=== PATIENT | female | born 1945 | race Caucasian/White ===

== ENCOUNTER → 2020-12-13 12:37 | Outpatient (CLI) | payer OTHER, SELFPAY ==
--- NOTE | ~2020-12-13 | CT_ITS ---
EXAMINATION: CT sinus wo con DATE: 12/13/2020 13:04 INDICATION: History of sinus infection TECHNIQUE: Computed tomography (CT) of the paranasal sinuses was performed without intravenous contra st. The dose-length product was 277.35 mGy-cm. Automated exposure control and iterative reconstructio n technique were employed. COMPARISON: None FINDINGS: There is mucosal thickening of the left maxillary sinus. No air-fluid levels. No significan t mucoperiosteal reaction. Mastoids are pneumatized. There is rightward nasal septal deviation. Right ostiomeatal unit is patent. Left ostiomeatal unit is occluded by soft tissue. There is intracranial atherosclerosis. IMPRESSION: 1. Mild sinus disease. Reviewed, dictated and finalized at location B. IMPRESSION: 1. Mild sinus disease.
== END ==
PROVIDERS: PCP Internal Medicine
DX: J01.90 Acute sinusitis, unspecified (principal)
CPT/HCPCS: 70486

== ENCOUNTER → 2021-11-22 10:17 | Outpatient (CLI) | payer OTHER, SELFPAY ==
--- NOTE | ~2021-11-22 | DEXA_ITS ---
Bone Density Report Name: TAWNYA LIU Age: 75 Sex: Female Ethnicity: White Date of : 1945 Indication: postmenopausal; screening for osteoporosis; height loss; Referring Provider: Igor, Monica Bhagat Study: Bone densitometry was performed. Exam Date: November 22, 2021 Accession number: [id number] Bone Density: Region BMD T-score Z-score Classification AP Spine (L1-L4) 0.931 -1.1 1.3 Osteopenia Femoral Neck (Left) 0.779 -0.6 1.4 Normal Total Hip (Left) 0.903 -0.3 1.5 Normal Femoral Neck (Right) 0.762 -0.8 1.3 Normal Total Hip (Right) 0.898 -0.4 1.4 Normal Total Hip Mean 0.901 -0.4 1.5 Normal World Health Organization criteria for BMD impression classify patients as: Normal (T-score at or above -1.0), Osteopenia (T-score between -1.0 and -2.5), or Osteoporosis (T-score at or below -2.5). 10-year Fracture Risk(1): Major Osteoporotic Fracture 9.1% Hip Fracture 1.2% Reported Risk Factors: [place] (), Neck BMD=0.762, BMI=28.1 (1) FRAX(R) Version 3.08. Fracture probability calculated for an untreated patient. Fracture probability may be lower if the patient has received treatment. Previous Exams: Region Exam Age BMD T-score BMD Change BMD Change Date g/cm2 vs Baseline vs Previous AP Spine(L1-L4) 11/22/2021 75 0.931 -1.1 -0.006 -0.032* 06/14/2016 70 0.963 -0.8 0.026* -0.024* 07/01/2013 67 0.987 -0.5 0.050* 0.050* 03/14/2007 61 0.937 -1.0 Total Hip(Left) 11/22/2021 75 0.903 -0.3 -0.044* -0.016 06/14/2016 70 0.919 -0.2 -0.028* -0.069* 07/01/2013 67 0.989 0.4 0.042* 0.042* 03/14/2007 61 0.947 0.0 Total Hip(Right) 11/22/2021 75 0.898 -0.4 -0.043* -0.027* 06/14/2016 70 0.925 -0.1 -0.016 -0.086* 07/01/2013 67 1.012 0.6 0.070* 0.070* 03/14/2007 61 0.941 0.0 *Denotes significance at 95% confidence level, LSC for AP Spine = 0.022 g/cm2, LSC for Total Hip = 0.027 g/cm2 Clinical Information Provided by Patient: Has used the following medications: Vitamin D, Calcium Patient maximum height was 65 Menopause Age: 53 Drinks caffeinated beverages Onset of menses at age 17 Number of children 2 Impression: The patient has low bone mass, based on the Total Spine T-score. The patient has an estimated ten-year risk of
== END ==
PROVIDERS: PCP Internal Medicine; Visit Provider Internal Medicine
DX: Z78.0 Asymptomatic menopausal state (principal); M85.88 Other specified disorders of bone density and structure, other site
CPT/HCPCS: 77080